=== PATIENT | male | born 1975 | race Caucasian/White ===

== ENCOUNTER 2021-09-15 14:44 | Emergency (ER) | payer OTHER ==
[~2021-09-15 14:44] MED LIST: ZESTRIL5 MG PO
[2021-09-15] MEDS ORDERED: CYCLOBENZAPRINE10 MG PO (18:06)
[2021-09-15] MEDS ORDERED: MOBIC15 MG PO (18:06)
== END 2021-09-15 18:18 | disposition home or self-care (01) ==
LOC: ER1 14:44
DX: S01.01XA Laceration without foreign body of scalp, initial encounter (principal); S16.1XXA Strain of muscle, fascia and tendon at neck level, initial encounter; S60.222A Contusion of left hand, initial encounter; I10 Essential (primary) hypertension; Z79.899 Other long term (current) drug therapy; Z23 Encounter for immunization; V49.40XA Driver injured in collision with unspecified motor vehicles in traffic accident, initial encounter; Y92.410 Unspecified street and highway as the place of occurrence of the external cause
CPT/HCPCS: 12002; 70450; 72125; 73130; 90471; 90715; 99284